=== PATIENT | female | born 1965 | race Caucasian/White ===

== ENCOUNTER 2021-02-21 08:03 | Day surgery (SDC) | payer OTHER, SELFPAY ==
[~2021-02-21] VITALS: Ht 172.7 cm; Wt 65.8 kg
== END 2021-02-21 14:08 | disposition home or self-care (01) ==
LOC: MDS 08:03 → MMU 08:04 → MDS 14:08
PROVIDERS: ATTEND Internal Medicine Gastroenterology
DX: K70.31 Alcoholic cirrhosis of liver with ascites (principal); R05.9 Cough, unspecified; Z79.899 Other long term (current) drug therapy; Z20.822 Contact with and (suspected) exposure to COVID-19; Z53.8 Procedure and treatment not carried out for other reasons
CPT/HCPCS: 76705; 87426; Q0092